=== PATIENT | male | born 1985 | race Caucasian/White ===

== ENCOUNTER 2016-10-14 12:40 | Outpatient (RCR) | payer OTHER ==
--- OUTSIDE RECORDS SUMMARY | 2016-08-19 12:08 | XMS REPORT | Continuity of Care Document ---
Author Author [facility] Organization [facility] Address Unknown Phone Unavailable Care Team Providers Care Video Producer Name Role Phone ShivamHailey mustafa PCP [phone] Source Comments Some departments are not documenting in the electronic medical record. If you do not see the information that you expected, contact Release of Information in the Health Information Management department at [phone] for further assistance in locating additional records.[facility] Active Allergies and Adverse Reactions No Known Allergies Current Medications Prescription Sig. Disp. Refills Start End Date Status Date Ferrous Sulfate (IRON) Take by mouth. Active 325 mg (65 mg iron) CpER cholecalciferol (Vitamin Take 1,000 Units by mouth Active D3) (VITAMIN D-3) 1,000 daily. units tablet fish oil /omega-3 fatty Take 2 Caps by mouth Active acids (SEA-OMEGA) daily. 340/1000 mg capsule ascorbic acid (VITAMIN-C) Take 500 mg by mouth Active 500 mg tablet daily. LACTOBACILLUS ACIDOPHILUS Take 1 Cap by mouth Active (PROBIOTIC PO) daily. PV W-O DESI/FERROUS Take by mouth daily. Active FUMARATE/FA (M-VIT PO) other medication 1 Dose. Patient takes two Active TrueCal-Mag tablets cyanocobalamin (VITAMIN INJECT 1 ML 1 mL 13 03/27/20 Active B-12, RUBRAMIN) 1,000 INTRAMUSCULARLY EVERY 14 16 mcg/mL injection DAYS inFLIXimab (REMICADE) 100 Administer 5 mg/kg Active mg/10 mL injection through vein once. Indications: CROHN'S DISEASE cholecalciferol (vitamin Take 1 Tab by mouth every 8 Tab 0 07/08/20 Active D3) 50,000 unit tab 7 days. X 8 weeks 16 Indications: VITAMIN D DEFICIENCY (HIGH DOSE THERAPY) Active Problems Problem Noted Date Crohn disease (HCC) 02/28/2013 Crohn's disease (HCC) 01/19/2013 Most Recent Encounters Date Type Specialty Providers Description 07/08/2016 Telephone Gastroenterology Primo Aguayo MD Results 07/01/2016 Hospital Primo Aguayo MD Encounter 07/01/2016 Office Visit Gastroenterology Primo Aguayo MD Crohn's disease with complication, unspecified gastrointestinal tract location (HCC) (Primary Dx); Medication monitoring encounter Social History Tobacco Use Types Packs/Day Years Used Date Former Smoker Cigarettes 0.25 1 Quit: 11/15/1999 Alcohol Use Drinks/Week oz/Week Comments Yes 0-1 Standard 0.0 - 0.6 drinks or equivalent Last Filed Vital Signs Vital Sign Reading Time Taken Blood Pressure 126/82 07/01/2016 8:55 AM CDT Pulse 71 07/01/2016 8:55 AM CDT Temperature 36.6 C (97.9 F) 07/01/2016 8:55 AM CDT Respiratory Rate 16 07/01/2016 8:55 AM CDT Height 1.702 m (5' 7") 07/01/2016 8:55 AM CDT Weight 73.347 kg (161 lb 11.2 07/01/2016 8:55 AM CDT oz) Body Mass Index 25.32 07/01/2016 8:55 AM CDT Oxygen Saturation 99% 04/10/2014 5:00 PM CDT Plan of Care Date Type Specialty Providers Description 10/29/2016 Appointment Gastroenterology Primo Aguayo MD [address] [facility] [address] [place] [address] [phone] (Fax) Health Maintenance Due Date Last Done Comments Physical (Comprehensive) 01/22/1992 Exam Pertussis Vaccine 01/22/1996 Tetanus Vaccine 2002 Influenza Vaccine 07/16/2016 Results from Last 3 Months MISC REFERENCE TEST (07/01/2016 9:46 AM) Component Value Range Test PROMETHEUS Anser IFX Reference Lab [facility] Results Ref Lab SEE PHYSICAL SCIENCE TEACHER FOR REPORT Specimen Mail SERUM C REACTIVE PROTEIN (CRP) (07/01/2016 9:46 AM) Component Value Range C-Reactive Protein 0.09 <1.0 MG/DL Specimen Blood SED RATE (07/01/2016 9:46 AM) Component Value Range Sed Rate -ESR 4 0-15 MM/HR Specimen Blood 25-OH VITAMIN D (D2 + D3) (07/01/2016 9:46 AM) Component Value Range Vitamin D(25-OH)Total 26.0 (L) 30-80 NG/ML Specimen Blood TSH WITH FREE T4 REFLEX (07/01/2016 9:46 AM) Component Value Range TSH 1.535 0.35-5.00 MCU/ML Specimen Blood COMPREHENSIVE METABOLIC PANEL (07/01/2016 9:46 AM) Component Value Range Sodium 138 137-147 MMOL/L Potassium 4.4 3.5-5.1 MMOL/L Chloride 104 98-110 MMOL/L Glucose 83 70-100 MG/DL Blood Urea Nitrogen 10 7-25 MG/DL Creatinine 1.11 0.4-1.24 MG/DL Calcium 9.8 8.5-10.6 MG/DL Total Protein 8.1 (H) 6.0-8.0 G/DL Total Bilirubin 0.3 0.3-1.2 MG/DL Albumin 4.5 3.5-5.0 G/DL Alk Phosphatase 74 25-110 U/L AST (SGOT) 24 7-40 U/L CO2 26 21-30 MMOL/L ALT (SGPT) 22 7-56 U/L Anion Gap 8 3-12 eGFR Non >60Comment: >60 mL/min The eGFR is not validated for use in drug dosing adjustments. Continue to use estimated creatinine clearance per dosing reference text. Please contact the Clinical Pharmacist for questions. eGFR >60Comment: >60 mL/min The eGFR is not validated for use in drug dosing adjustments. Continue to use estimated creatinine clearance per dosing reference text. Please contact the Clinical Pharmacist for questions. Specimen Blood CBC AND DIFF (07/01/2016 9:46 AM) Component Value Range White Blood Cells 5.5 4.5-11.0 K/UL RBC 5.20 4.4-5.5 M/UL Hemoglobin 14.6 13.5-16.5 GM/DL Hematocrit 44.3 40-50 % MCV 85.3 80-100 FL MCH 28.1 26-34 PG MCHC 33.0 32.0-36.0 G/DL RDW 13.3 11-15 % Platelet Count 189 150-400 K/UL MPV 9.4 7-11 FL Neutrophils 52 41-77 % Lymphocytes 38 24-44 % Monocytes 9 4-12 % Eosinophils 1 0-5 % Basophils 0 0-2 % Absolute Neutrophil Count 2.80 1.8-7.0 K/UL Absolute Lymph Count 2.10 1.0-4.8 K/UL Absolute Monocyte Count 0.50 0-0.80 K/UL Absolute Eosinophil Count 0.10 0-0.45 K/UL Absolute Basophil Count 0.00 0-0.20 K/UL Specimen Blood
[2016-08-19] MEDS: diphenhydrAMINE 50 MG/ML INJ (BENADRYL) IV SCH (13:00)
[2016-08-19] MEDS: ACETAMINOPHEN 500 MG TAB (TYLENOL) PO SCH (13:00)
[2016-08-19 14:30] VITALS: BP 101/62
[2016-08-19] MEDS: NORMAL SALINE IV SCH (14:30)
[2016-08-19] MEDS: INFLIXIMAB FOR IV SCH (14:30)
[2016-08-19 17:00] VITALS: BP 101/62
[~2016-10-14] VITALS: Ht 170.2 cm; Wt 73.9 kg
[~2016-10-14 12:40] MED LIST: ACETAMINOPHEN 500 MG TAB (TYLENOL) ONE; ACETAMINOPHEN 500 MG TAB (TYLENOL) PO PRN; BUDESONIDE PO; CPR500T PO; EPINEPHrine INJECTION 1 MG/ML AMP SC PRN; FLU TRIvalent (5 YOA+) 2016-17 (AFLURIA) 0.5 ML IM ONE; HYDR-3583 PO; METR500T PO; ONDN4T PO; PRD20T PO; VIT B12 INJECTION IM; diphenhydrAMINE 50 MG/ML INJ (BENADRYL) IV PRN; diphenhydrAMINE 50 MG/ML INJ (BENADRYL) ONE
[2016-10-14] MEDS: ACETAMINOPHEN 500 MG TAB (TYLENOL) PO SCH (12:50)
[2016-10-14] MEDS: diphenhydrAMINE 50 MG/ML INJ (BENADRYL) IV SCH (12:55)
[2016-10-14 13:04] VITALS: BP 117/72
[2016-10-14 13:04] LABS: BASOPHILS % (AUTO) 0 % (0-10); EOSINOPHILS % (AUTO) 1 % (0-10); LYMPHOCYTES % (AUTO) 34 % (12-44); MEAN CORPUSCULAR HEMOGLOBIN 29 PG (25-34); MEAN CORPUSCULAR HGB CONC 34 G/DL (32-36); MEAN CORPUSCULAR VOLUME 84 FL (80-99); MEAN PLATELET VOLUME 10.4 FL (7.4-10.4); MONOCYTES # (AUTO) 0.5 X 10^3 (0.0-1.0); MONOCYTES % (AUTO) 9 % (0-12); NEUTROPHILS # (AUTO) 3.3 X 10^3 (1.8-7.8); NEUTROPHILS % (AUTO) 56 % (42-75); PLATELET COUNT 169 10^3/uL (130-400); RED BLOOD COUNT 5.01 10^6/uL (4.35-5.85); RED CELL DISTRIBUTION WIDTH 13.3 % (10.0-14.5); WHITE BLOOD COUNT 5.9 10^3/uL (4.3-11.0)
[2016-10-14 13:24] LABS: ALANINE AMINOTRANSFERASE 41 U/L (0-55); ALBUMIN 4.7 G/DL (3.2-4.5); ANION GAP 10 MMOL/L (5-14); ASPARTATE AMINO TRANSFERASE 30 U/L (5-34); BILIRUBIN,TOTAL 0.3 MG/DL (0.1-1.0); BLOOD UREA NITROGEN 9 MG/DL (7-18); BUN/CREATININE RATIO 10; CALCIUM 9.3 MG/DL (8.5-10.1); CARBON DIOXIDE 24 MMOL/L (21-32); CHLORIDE 105 MMOL/L (98-107); GFR ESTIMATED > 60; GLUCOSE 84 MG/DL (70-105); SODIUM 139 MMOL/L (135-145); TOTAL PROTEIN 7.7 G/DL (6.4-8.2)
[2016-10-14] MEDS: NORMAL SALINE IV SCH (13:46)
[2016-10-14] MEDS: INFLIXIMAB FOR IV SCH (13:46)
[2016-10-14 16:00] VITALS: BP 117/72
== END 2016-11-17 | disposition home or self-care (01) ==
LOC: SDC 12:40
PROVIDERS: ATTEND Internal Medicine Gastroenterology
DX: K50.90 Crohn's disease, unspecified, without complications (principal)
CPT/HCPCS: 36415; 80053; 85025; 96365; 96366; 96374; 96375

== ENCOUNTER 2016-12-09 12:44 | Outpatient (RCR) | payer OTHER ==
[~2016-12-09] VITALS: Ht 170.2 cm; Wt 73.9 kg
[~2016-12-09 12:44] MED LIST changes: -ACETAMINOPHEN 500 MG TAB (TYLENOL) ONE; -ACETAMINOPHEN 500 MG TAB (TYLENOL) PO PRN; -EPINEPHrine INJECTION 1 MG/ML AMP SC PRN; -FLU TRIvalent (5 YOA+) 2016-17 (AFLURIA) 0.5 ML IM ONE; -diphenhydrAMINE 50 MG/ML INJ (BENADRYL) IV PRN; -diphenhydrAMINE 50 MG/ML INJ (BENADRYL) ONE
--- OUTSIDE RECORDS SUMMARY | 2016-12-09 12:48 | XMS REPORT | Continuity of Care Document ---
Author Author [facility] Organization [facility] Address Unknown Phone Unavailable Care Team Providers Care Lamps Tester And Inspector Name Role Phone ShivamHailey mustafa PCP [phone] Source Comments Some departments are not documenting in the electronic medical record. If you do not see the information that you expected, contact Release of Information in the Health Information Management department at [phone] for further assistance in locating additional records.[facility] Active Allergies and Adverse Reactions No [...] by mouth daily. Active FUMARATE/FA (M-VIT PO) inFLIXimab (REMICADE) 100 Administer 5 mg/kg Active mg/10 mL injection through vein once. Indications: CROHN'S DISEASE cyanocobalamin (VITAMIN INJECT 1 ML 1 mL 12 09/24/20 Active B-12, RUBRAMIN) 1,000 INTRAMUSCULARLY EVERY 14 16 mcg/mL injection DAYS colestipol (COLESTID) 1 Take 1 Tab by mouth three 90 Each 3 10/29/20 Active gram tablet times daily with meals. 16 Cholecalciferol (Vitamin Chew 1 Tab by mouth 90 Tab 0 12/25/19 Active D3) (VITAMIN D-3) 1,000 daily. Start after 17 unit chew Vitamin D 87034 have been completed. Indications: VITAMIN D DEFICIENCY (HIGH DOSE THERAPY) ergocalciferol (VITAMIN Take 1 Cap by mouth every 8 Cap 0 10/29/20 12/24/19 Active D-2) 50,000 unit capsule 7 days for 56 days. For 8 16 17 weeks Indications: VITAMIN D DEFICIENCY (HIGH DOSE THERAPY) diphenoxylate/atropine Take 1 Tab by mouth three 120 Tab 1 11/02/20 Active (LOMOTIL) 2.5/0.025 mg times daily as needed for 16 tablet Diarrhea (take 1 to 2 tablets by mouth three to four times a day as needed). Active Problems Problem Noted Date Crohn disease ([facility]) 02/28/2013 Crohn's disease ([facility]) 01/19/2013 Most Recent Encounters Date Type Specialty Providers Description 11/02/2016 Refill Gastroenterology Primo Aguayo MD 10/29/2016 Office Visit Gastroenterology Primo Aguayo MD Low vitamin D level (Primary Dx); Medication management; Crohn's colitis, unspecified complication ([facility]) 10/16/2016 Orders Only Gastroenterology Primo Aguayo MD Low vitamin D level; Medication monitoring encounter 10/15/2016 Telephone GastroenterPrimo See MD Lab Request 09/24/2016 Telephone Gastroenterology Primo Aguayo MD Follow-up Phone Call 09/23/2016 Refill Gastroenterology Primo Aguayo MD Social History Tobacco Use Types Packs/Day Years Used Date Former Smoker Cigarettes 0.25 1 Quit: 11/15/1999 Alcohol Use Drinks/Week oz/Week Comments Yes 0-1 Standard 0.0 - 0.6 drinks or equivalent Last Filed Vital Signs Vital Sign Reading Time Taken Blood Pressure 129/79 10/29/2016 12:40 PM BELT BUILDER HELPER Pulse 85 10/29/2016 12:40 PM BELT BUILDER HELPER Temperature 36.8 C (98.3 F) 10/29/2016 12:40 PM BELT BUILDER HELPER Respiratory Rate 16 10/29/2016 12:40 PM BELT BUILDER HELPER Height 1.702 m (5' 7") 10/29/2016 12:40 PM BELT BUILDER HELPER Weight 74.844 kg (165 lb) 10/29/2016 12:40 PM BELT BUILDER HELPER Body Mass Index 25.84 10/29/2016 12:40 PM BELT BUILDER HELPER Oxygen Saturation 99% 04/10/2014 5:00 PM CDT Plan of Care Date Type Specialty Providers Description 04/22/2017 Appointment Gastroenterology Primo Aguayo MD [address] [place] [address] [phone] (Fax) Health Maintenance Due Date Last Done Comments Physical (Comprehensive) 01/22/1992 Exam Pertussis Vaccine 01/22/1996 Tetanus Vaccine 2002 Influenza Vaccine 07/16/2016 Results from Last 3 Months CBC AND DIFF (10/14/2016 12:55 PM) Component Value Range White Blood Cells 5.9 4.3-11.0 10E3/uL RBC 5.01 4.35-5.85 10E6/uL Hemoglobin 14.3 13.3-17.7 G/DL Hematocrit 42 40-54 % MCV 84 80-99 FL MCH 29 25-34 PG MCHC 34 32-36 G/DL Platelet Count 169 130-400 10E3/uL MPV 10.4 7.4-10.4 FL RDW 13.3 10.0-14.5 % Neutrophils 56 42-75 % Absolute Neutrophil Count 3.3 1.8-7.8 x10E3 Lymphocytes 34 12-44 % Absolute Lymph Count 2.0 1.0-4.0 x10E3 Monocytes 9 0-12 % Absolute Monocyte Count 0.5 0.0-1.0 x10E3 Eosinophil 1 0-10 % Absolute Eosinophil Count 0.0 0.0-0.3 10E3/uL Basophils 0 0-10 % Absolute Basophil Count 0.0 0.0-0.1 10E3/uL Specimen Blood COMPREHENSIVE METABOLIC PANEL (10/14/2016 12:55 PM) Component Value Range Sodium 139 135-145 MMOL/L Potassium 4.0 3.6-5.0 MMOL/L Chloride 105 98-107 MMOL/L CO2 24 21-32 MMOL/L Blood Urea Nitrogen 9 7-18 MG/DL Creatinine 0.90 0.6-1.3 MG/DL Glucose 84 70-105 MG/DL Calcium 9.3 8.5-10.1 MG/DL Total Protein 7.7 6.4-8.2 G/DL Total Bilirubin 0.3 0.1-1.0 MG/DL Albumin 4.7 (A) 3.2-4.5 G/DL Alk Phosphatase 82 40-136 U/L AST (SGOT) 30 5-34 U/L ALT (SGPT) 41 0-55 U/L eGFR Non >60 >60 mL/min/1.73 M2 Anion Gap 10 5-14 MMOL/L Specimen Blood
[2016-12-09] MEDS ORDERED: ACETAMINOPHEN 500 MG TAB (TYLENOL) ONE (12:49)
[2016-12-09] MEDS ORDERED: diphenhydrAMINE 50 MG/ML INJ (BENADRYL) ONE (12:49)
[2016-12-09] MEDS ORDERED: diphenhydrAMINE 50 MG/ML INJ (BENADRYL) IVP PRN (13:00)
[2016-12-09] MEDS ORDERED: ACETAMINOPHEN 500 MG TAB (TYLENOL) PO PRN (13:00)
[2016-12-09 13:17] LABS: BASOPHILS % (AUTO) 0 % (0-10); EOSINOPHILS % (AUTO) 1 % (0-10); LYMPHOCYTES # (AUTO) 1.5 X 10^3 (1.0-4.0); LYMPHOCYTES % (AUTO) 34 % (12-44); MEAN CORPUSCULAR HEMOGLOBIN 29 PG (25-34); MEAN CORPUSCULAR HGB CONC 34 G/DL (32-36); MEAN CORPUSCULAR VOLUME 84 FL (80-99); MEAN PLATELET VOLUME 10.8 FL (7.4-10.4); MONOCYTES # (AUTO) 0.5 X 10^3 (0.0-1.0); MONOCYTES % (AUTO) 10 % (0-12); NEUTROPHILS # (AUTO) 2.5 X 10^3 (1.8-7.8); NEUTROPHILS % (AUTO) 55 % (42-75); PLATELET COUNT 180 10^3/uL (130-400); RED BLOOD COUNT 5.12 10^6/uL (4.35-5.85); RED CELL DISTRIBUTION WIDTH 13.3 % (10.0-14.5); WHITE BLOOD COUNT 4.5 10^3/uL (4.3-11.0)
[2016-12-09] MEDS ORDERED: NORMAL SALINE IV SCH (13:30)
[2016-12-09] MEDS ORDERED: INFLIXIMAB FOR IV SCH (13:30)
[2016-12-09 13:34] LABS: ALANINE AMINOTRANSFERASE 27 U/L (0-55); ALBUMIN 4.8 G/DL (3.2-4.5); ANION GAP 11 MMOL/L (5-14); ASPARTATE AMINO TRANSFERASE 22 U/L (5-34); BILIRUBIN,TOTAL 0.4 MG/DL (0.1-1.0); BLOOD UREA NITROGEN 8 MG/DL (7-18); BUN/CREATININE RATIO 8; CALCIUM 9.2 MG/DL (8.5-10.1); CARBON DIOXIDE 26 MMOL/L (21-32); CHLORIDE 104 MMOL/L (98-107); CREATININE SERUM 1.02 MG/DL (0.60-1.30); GFR ESTIMATED > 60; GLUCOSE 98 MG/DL (70-105); POTASSIUM 4.1 MMOL/L (3.6-5.0); SODIUM 141 MMOL/L (135-145); TOTAL PROTEIN 7.8 G/DL (6.4-8.2)
[2016-12-09 14:17] VITALS: BP 122/81
[2016-12-09 15:50] VITALS: BP 122/81
== END 2017-03-09 | disposition home or self-care (01) ==
LOC: SDC 12:44
PROVIDERS: ATTEND Internal Medicine Gastroenterology
DX: K50.90 Crohn's disease, unspecified, without complications (principal)
CPT/HCPCS: 36415; 80053; 85025; 96365; 96366; 96374

== ENCOUNTER → 2017-02-03 | Outpatient (CLI) | payer OTHER ==
[~2017-02-03] VITALS: Ht 170.2 cm; Wt 74.8 kg
[~2017-02-03] MED LIST changes: +ACETAMINOPHEN 500 MG TAB (TYLENOL) PO PRN; +INFLIXIMAB FOR IV SCH; +NORMAL SALINE IV SCH; +diphenhydrAMINE 50 MG/ML INJ (BENADRYL) IV PRN
[2017-02-03 13:30] VITALS: BP 141/84
[2017-02-03 13:51] LABS: BASOPHILS % (AUTO) 0 % (0-10); EOSINOPHILS % (AUTO) 1 % (0-10); LYMPHOCYTES # (AUTO) 1.5 X 10^3 (1.0-4.0); LYMPHOCYTES % (AUTO) 33 % (12-44); MEAN CORPUSCULAR HEMOGLOBIN 29 PG (25-34); MEAN CORPUSCULAR HGB CONC 35 G/DL (32-36); MEAN CORPUSCULAR VOLUME 84 FL (80-99); MEAN PLATELET VOLUME 10.5 FL (7.4-10.4); MONOCYTES # (AUTO) 0.5 X 10^3 (0.0-1.0); MONOCYTES % (AUTO) 11 % (0-12); NEUTROPHILS # (AUTO) 2.5 X 10^3 (1.8-7.8); NEUTROPHILS % (AUTO) 55 % (42-75); PLATELET COUNT 165 10^3/uL (130-400); RED BLOOD COUNT 4.81 10^6/uL (4.35-5.85); WHITE BLOOD COUNT 4.6 10^3/uL (4.3-11.0)
[2017-02-03 14:03] LABS: ALANINE AMINOTRANSFERASE 42 U/L (0-55); ALBUMIN 4.3 G/DL (3.2-4.5); ANION GAP 6 MMOL/L (5-14); ASPARTATE AMINO TRANSFERASE 42 U/L (5-34); BILIRUBIN,TOTAL 0.4 MG/DL (0.1-1.0); BLOOD UREA NITROGEN 9 MG/DL (7-18); BUN/CREATININE RATIO 9; CALCIUM 8.9 MG/DL (8.5-10.1); CARBON DIOXIDE 30 MMOL/L (21-32); CHLORIDE 105 MMOL/L (98-107); CREATININE SERUM 1.03 MG/DL (0.60-1.30); GFR ESTIMATED > 60; GLUCOSE 78 MG/DL (70-105); POTASSIUM 3.8 MMOL/L (3.6-5.0); SODIUM 141 MMOL/L (135-145); TOTAL PROTEIN 7.4 G/DL (6.4-8.2)
[2017-02-03 15:58] VITALS: BP 141/84
== END | disposition still patient (30) ==
LOC: SDC 13:18 → EDSTATUS 02-04 12:32
PROVIDERS: ATTEND Internal Medicine Gastroenterology
DX: K50.919 Crohn's disease, unspecified, with unspecified complications (principal)
CPT/HCPCS: 36415; 80053; 85025; 96365; 96366

== ENCOUNTER → 2017-03-31 | Outpatient (CLI) | payer OTHER ==
[~2017-03-31] VITALS: Ht 170.2 cm; Wt 74.8 kg
[~2017-03-31] MED LIST changes: +ACETAMINOPHEN 500 MG TAB (TYLENOL) ONE; +EPINEPHrine INJECTION 1 MG/ML AMP SC SCH; +diphenhydrAMINE 50 MG/ML INJ (BENADRYL) ONE
[2017-03-31 12:10] VITALS: BP 127/84
[2017-03-31 12:42] LABS: BASOPHILS % (AUTO) 0 % (0-10); EOSINOPHILS % (AUTO) 1 % (0-10); LYMPHOCYTES % (AUTO) 42 % (12-44); MEAN CORPUSCULAR HEMOGLOBIN 29 PG (25-34); MEAN CORPUSCULAR HGB CONC 34 G/DL (32-36); MEAN CORPUSCULAR VOLUME 84 FL (80-99); MEAN PLATELET VOLUME 10.3 FL (7.4-10.4); MONOCYTES # (AUTO) 0.5 X 10^3 (0.0-1.0); MONOCYTES % (AUTO) 11 % (0-12); NEUTROPHILS # (AUTO) 2.1 X 10^3 (1.8-7.8); NEUTROPHILS % (AUTO) 46 % (42-75); PLATELET COUNT 157 10^3/uL (130-400); RED BLOOD COUNT 4.87 10^6/uL (4.35-5.85); RED CELL DISTRIBUTION WIDTH 13.2 % (10.0-14.5); WHITE BLOOD COUNT 4.7 10^3/uL (4.3-11.0)
[2017-03-31 13:01] LABS: ALANINE AMINOTRANSFERASE 28 U/L (0-55); ALBUMIN 4.3 G/DL (3.2-4.5); ANION GAP 9 MMOL/L (5-14); ASPARTATE AMINO TRANSFERASE 20 U/L (5-34); BILIRUBIN,TOTAL 0.4 MG/DL (0.1-1.0); BLOOD UREA NITROGEN 7 MG/DL (7-18); BUN/CREATININE RATIO 8; CALCIUM 9.2 MG/DL (8.5-10.1); CARBON DIOXIDE 26 MMOL/L (21-32); CHLORIDE 106 MMOL/L (98-107); CREATININE SERUM 0.93 MG/DL (0.60-1.30); GFR ESTIMATED > 60; GLUCOSE 80 MG/DL (70-105); POTASSIUM 3.9 MMOL/L (3.6-5.0); SODIUM 141 MMOL/L (135-145); TOTAL PROTEIN 7.2 G/DL (6.4-8.2)
== END ==
LOC: SDC 02-03 13:15
PROVIDERS: ATTEND Internal Medicine Gastroenterology
DX: K50.919 Crohn's disease, unspecified, with unspecified complications (principal)
CPT/HCPCS: 36415; 80053; 85025; 96365; 96366

== ENCOUNTER → 2017-05-27 | Outpatient (CLI) | payer OTHER ==
[~2017-05-27] VITALS: Ht 170.2 cm; Wt 74.8 kg
[~2017-05-27] MED LIST changes: +EPINEPHrine INJECTION 1 MG/ML AMP SC PRN; -EPINEPHrine INJECTION 1 MG/ML AMP SC SCH; -INFLIXIMAB FOR IV SCH; +INFLIXIMAB IV SCH; -NORMAL SALINE IV SCH; +NS IV SCH
[2017-05-27 14:28] LABS: BASOPHILS % (AUTO) 0 % (0-10); EOSINOPHILS # (AUTO) 0.1 10^3/uL (0.0-0.3); EOSINOPHILS % (AUTO) 1 % (0-10); LYMPHOCYTES # (AUTO) 1.3 X 10^3 (1.0-4.0); LYMPHOCYTES % (AUTO) 36 % (12-44); MEAN CORPUSCULAR HEMOGLOBIN 29 PG (25-34); MEAN CORPUSCULAR HGB CONC 34 G/DL (32-36); MEAN CORPUSCULAR VOLUME 84 FL (80-99); MEAN PLATELET VOLUME 10.7 FL (7.4-10.4); MONOCYTES # (AUTO) 0.5 X 10^3 (0.0-1.0); MONOCYTES % (AUTO) 13 % (0-12); NEUTROPHILS # (AUTO) 1.9 X 10^3 (1.8-7.8); NEUTROPHILS % (AUTO) 50 % (42-75); PLATELET COUNT 164 10^3/uL (130-400); RED BLOOD COUNT 4.62 10^6/uL (4.35-5.85); RED CELL DISTRIBUTION WIDTH 13.1 % (10.0-14.5); WHITE BLOOD COUNT 3.7 10^3/uL (4.3-11.0)
[2017-05-27 14:44] LABS: ALANINE AMINOTRANSFERASE 32 U/L (0-55); ALBUMIN 4.2 GM/DL (3.2-4.5); ANION GAP 8 MMOL/L (5-14); ASPARTATE AMINO TRANSFERASE 27 U/L (5-34); BILIRUBIN,TOTAL 0.6 MG/DL (0.1-1.0); BLOOD UREA NITROGEN 7 MG/DL (7-18); BUN/CREATININE RATIO 7; CARBON DIOXIDE 28 MMOL/L (21-32); CHLORIDE 104 MMOL/L (98-107); CREATININE SERUM 0.97 MG/DL (0.60-1.30); GFR ESTIMATED > 60; GLUCOSE 80 MG/DL (70-105); POTASSIUM 3.9 MMOL/L (3.6-5.0); SODIUM 140 MMOL/L (135-145); TOTAL PROTEIN 7.5 GM/DL (6.4-8.2)
[2017-05-27 16:35] VITALS: BP 121/72
== END ==
LOC: SDC 13:51
PROVIDERS: ATTEND Internal Medicine Gastroenterology
DX: K50.919 Crohn's disease, unspecified, with unspecified complications (principal)
CPT/HCPCS: 36415; 80053; 85025; 96365; 96366; 96374

== ENCOUNTER → 2017-07-22 | Outpatient (CLI) | payer OTHER ==
[~2017-07-22] VITALS: Ht 170.2 cm; Wt 74.8 kg
[~2017-07-22] MED LIST changes: -ACETAMINOPHEN 500 MG TAB (TYLENOL) PO PRN; +ACETAMINOPHEN 500 MG TAB (TYLENOL) PO SCH; -EPINEPHrine INJECTION 1 MG/ML AMP SC PRN; +diphenhydrAMINE 50 MG/ML INJ (BENADRYL) IV ONE; -diphenhydrAMINE 50 MG/ML INJ (BENADRYL) IV PRN
[2017-07-22 13:13] LABS: BASOPHILS % (AUTO) 0 % (0-10); EOSINOPHILS % (AUTO) 1 % (0-10); LYMPHOCYTES # (AUTO) 1.9 X 10^3 (1.0-4.0); LYMPHOCYTES % (AUTO) 37 % (12-44); MEAN CORPUSCULAR HEMOGLOBIN 29 PG (25-34); MEAN CORPUSCULAR HGB CONC 34 G/DL (32-36); MEAN CORPUSCULAR VOLUME 85 FL (80-99); MEAN PLATELET VOLUME 10.4 FL (7.4-10.4); MONOCYTES # (AUTO) 0.5 X 10^3 (0.0-1.0); MONOCYTES % (AUTO) 10 % (0-12); NEUTROPHILS # (AUTO) 2.6 X 10^3 (1.8-7.8); NEUTROPHILS % (AUTO) 52 % (42-75); PLATELET COUNT 174 10^3/uL (130-400); RED BLOOD COUNT 4.96 10^6/uL (4.35-5.85); WHITE BLOOD COUNT 5.1 10^3/uL (4.3-11.0)
[2017-07-22 13:36] LABS: ALANINE AMINOTRANSFERASE 45 U/L (0-55); ALBUMIN 4.4 GM/DL (3.2-4.5); ANION GAP 8 MMOL/L (5-14); ASPARTATE AMINO TRANSFERASE 26 U/L (5-34); BILIRUBIN,TOTAL 0.5 MG/DL (0.1-1.0); BLOOD UREA NITROGEN 9 MG/DL (7-18); BUN/CREATININE RATIO 9; CALCIUM 9.4 MG/DL (8.5-10.1); CARBON DIOXIDE 27 MMOL/L (21-32); CHLORIDE 105 MMOL/L (98-107); CREATININE SERUM 0.96 MG/DL (0.60-1.30); GFR ESTIMATED > 60; GLUCOSE 100 MG/DL (70-105); POTASSIUM 3.9 MMOL/L (3.6-5.0); SODIUM 140 MMOL/L (135-145); TOTAL PROTEIN 7.7 GM/DL (6.4-8.2)
[2017-07-22 13:51] VITALS: BP 141/86
[2017-07-22 15:28] VITALS: BP 141/86
== END ==
LOC: SDC 12:33
PROVIDERS: ATTEND Internal Medicine Gastroenterology
DX: K50.919 Crohn's disease, unspecified, with unspecified complications (principal)
CPT/HCPCS: 36415; 80053; 85025; 96365; 96366

== ENCOUNTER → 2017-09-16 | Outpatient (CLI) | payer OTHER ==
[~2017-09-16] VITALS: Ht 170.2 cm; Wt 74.8 kg
[~2017-09-16] MED LIST changes: -ACETAMINOPHEN 500 MG TAB (TYLENOL) ONE; +ACETAMINOPHEN 500 MG TAB (TYLENOL) PO PRN; +EPINEPHrine INJECTION 1 MG/ML AMP SC PRN; -diphenhydrAMINE 50 MG/ML INJ (BENADRYL) IV ONE; +diphenhydrAMINE 50 MG/ML INJ (BENADRYL) IV PRN; +diphenhydrAMINE 50 MG/ML INJ (BENADRYL) IV SCH; -diphenhydrAMINE 50 MG/ML INJ (BENADRYL) ONE
[2017-09-16 13:11] VITALS: BP 128/80
[2017-09-16 13:13] VITALS: BP 128/80
[2017-09-16 13:55] LABS: BASOPHILS % (AUTO) 0 % (0-10); EOSINOPHILS # (AUTO) 0.1 10^3/uL (0.0-0.3); EOSINOPHILS % (AUTO) 1 % (0-10); LYMPHOCYTES # (AUTO) 1.9 X 10^3 (1.0-4.0); LYMPHOCYTES % (AUTO) 38 % (12-44); MEAN CORPUSCULAR HEMOGLOBIN 29 PG (25-34); MEAN CORPUSCULAR HGB CONC 34 G/DL (32-36); MEAN CORPUSCULAR VOLUME 85 FL (80-99); MEAN PLATELET VOLUME 10.3 FL (7.4-10.4); MONOCYTES # (AUTO) 0.5 X 10^3 (0.0-1.0); MONOCYTES % (AUTO) 10 % (0-12); NEUTROPHILS # (AUTO) 2.5 X 10^3 (1.8-7.8); NEUTROPHILS % (AUTO) 50 % (42-75); PLATELET COUNT 175 10^3/uL (130-400); RED BLOOD COUNT 4.84 10^6/uL (4.35-5.85); RED CELL DISTRIBUTION WIDTH 13.4 % (10.0-14.5); WHITE BLOOD COUNT 4.9 10^3/uL (4.3-11.0)
[2017-09-16 14:14] LABS: ALANINE AMINOTRANSFERASE 35 U/L (0-55); ALBUMIN 4.3 GM/DL (3.2-4.5); ANION GAP 8 MMOL/L (5-14); ASPARTATE AMINO TRANSFERASE 26 U/L (5-34); BILIRUBIN,TOTAL 0.4 MG/DL (0.1-1.0); BLOOD UREA NITROGEN 8 MG/DL (7-18); BUN/CREATININE RATIO 8; CALCIUM 9.4 MG/DL (8.5-10.1); CARBON DIOXIDE 27 MMOL/L (21-32); CHLORIDE 104 MMOL/L (98-107); CREATININE SERUM 0.97 MG/DL (0.60-1.30); GFR ESTIMATED > 60; GLUCOSE 91 MG/DL (70-105); POTASSIUM 4.1 MMOL/L (3.6-5.0); SODIUM 139 MMOL/L (135-145); TOTAL PROTEIN 7.6 GM/DL (6.4-8.2)
[2017-09-16 16:27] VITALS: BP 128/80
== END ==
LOC: SDC 12:33
PROVIDERS: ATTEND Internal Medicine Gastroenterology
DX: K50.919 Crohn's disease, unspecified, with unspecified complications (principal)
CPT/HCPCS: 36415; 80053; 85025; 96365; 96366; 96375

== ENCOUNTER 2017-11-11 13:12 | Outpatient (RCR) | payer OTHER ==
[~2017-11-11 13:12] MED LIST changes: -ACETAMINOPHEN 500 MG TAB (TYLENOL) PO PRN; -ACETAMINOPHEN 500 MG TAB (TYLENOL) PO SCH; -EPINEPHrine INJECTION 1 MG/ML AMP SC PRN; -INFLIXIMAB IV SCH; -NS IV SCH; -diphenhydrAMINE 50 MG/ML INJ (BENADRYL) IV PRN; -diphenhydrAMINE 50 MG/ML INJ (BENADRYL) IV SCH
[2017-11-11] MEDS ORDERED: ACETAMINOPHEN 500 MG TAB (TYLENOL) ONE ×2 (13:29→13:45)
[2017-11-11] MEDS ORDERED: diphenhydrAMINE 50 MG/ML INJ (BENADRYL) ONE ×2 (13:29→13:45)
== END 2018-02-09 | disposition home or self-care (01) ==
LOC: SDC 13:12
PROVIDERS: ATTEND Internal Medicine Gastroenterology
DX: K50.90 Crohn's disease, unspecified, without complications (principal)
CPT/HCPCS: 96365; 96366; 96375

== ENCOUNTER → 2018-01-05 | Outpatient (CLI) | payer OTHER ==
[~2018-01-05] VITALS: Ht 170.2 cm; Wt 73.0 kg
[~2018-01-05] MED LIST changes: +EPINEPHrine INJECTION 1 MG/ML AMP SC PRN; +INFLIXIMAB IV SCH; +SODIUM CHLORIDE IV SCH; +diphenhydrAMINE 50 MG/ML INJ (BENADRYL) IV PRN
[2018-01-05 12:21] VITALS: BP 128/82
[2018-01-05] MEDS: ACETAMINOPHEN 500 MG TAB (TYLENOL) PO PRN (12:50)
[2018-01-05 14:42] LABS: BASOPHILS % (AUTO) 0 % (0-10); EOSINOPHILS % (AUTO) 1 % (0-10); HEMATOCRIT 40 % (40-54); HEMOGLOBIN 13.7 G/DL (13.3-17.7); LYMPHOCYTES # (AUTO) 1.5 X 10^3 (1.0-4.0); LYMPHOCYTES % (AUTO) 31 % (12-44); MEAN CORPUSCULAR HEMOGLOBIN 29 PG (25-34); MEAN CORPUSCULAR HGB CONC 34 G/DL (32-36); MEAN CORPUSCULAR VOLUME 85 FL (80-99); MEAN PLATELET VOLUME 10.2 FL (7.4-10.4); MONOCYTES # (AUTO) 0.6 X 10^3 (0.0-1.0); MONOCYTES % (AUTO) 12 % (0-12); NEUTROPHILS # (AUTO) 2.7 X 10^3 (1.8-7.8); NEUTROPHILS % (AUTO) 56 % (42-75); PLATELET COUNT 190 10^3/uL (130-400); RED BLOOD COUNT 4.78 10^6/uL (4.35-5.85); RED CELL DISTRIBUTION WIDTH 13.3 % (10.0-14.5); WHITE BLOOD COUNT 4.8 10^3/uL (4.3-11.0)
[2018-01-05 15:10] LABS: ALANINE AMINOTRANSFERASE 33 U/L (0-55); ALBUMIN 4.3 GM/DL (3.2-4.5); ALKALINE PHOSPHATASE 82 U/L (40-136); BILIRUBIN,TOTAL 0.3 MG/DL (0.1-1.0); BUN/CREATININE RATIO 12; CALCIUM 8.9 MG/DL (8.5-10.1); CARBON DIOXIDE 26 MMOL/L (21-32); CHLORIDE 103 MMOL/L (98-107); CREATININE SERUM 0.98 MG/DL (0.60-1.30); GFR ESTIMATED > 60; GLUCOSE 70 MG/DL (70-105); POTASSIUM 3.8 MMOL/L (3.6-5.0); SODIUM 138 MMOL/L (135-145); TOTAL PROTEIN 7.8 GM/DL (6.4-8.2)
== END ==
LOC: SDC 12:18
PROVIDERS: ATTEND Internal Medicine Gastroenterology
DX: K50.919 Crohn's disease, unspecified, with unspecified complications (principal)
CPT/HCPCS: 36415; 80053; 85025; 96365; 96366

== ENCOUNTER 2018-03-03 11:53 | Outpatient (RCR) | payer OTHER ==
[~2018-03-03] VITALS: Ht 170.2 cm; Wt 73.0 kg
[~2018-03-03 11:53] MED LIST changes: -EPINEPHrine INJECTION 1 MG/ML AMP SC PRN; -INFLIXIMAB IV SCH; -SODIUM CHLORIDE IV SCH; -diphenhydrAMINE 50 MG/ML INJ (BENADRYL) IV PRN
[2018-03-03 11:55] VITALS: BP 124/82
[2018-03-03] MEDS ORDERED: ACETAMINOPHEN 500 MG TAB (TYLENOL) ONE (11:58)
[2018-03-03] MEDS ORDERED: diphenhydrAMINE 50 MG/ML INJ (BENADRYL) ONE (12:10)
[2018-03-03] MEDS ORDERED: INFLIXIMAB IV SCH ×4 (12:13→12:17)
[2018-03-03] MEDS ORDERED: SODIUM CHLORIDE IV SCH ×4 (12:13→12:17)
[2018-03-03 12:16] LABS: BASOPHILS % (AUTO) 0 % (0-10); EOSINOPHILS # (AUTO) 0.1 10^3/uL (0.0-0.3); EOSINOPHILS % (AUTO) 1 % (0-10); HEMATOCRIT 42 % (40-54); HEMOGLOBIN 14.3 G/DL (13.3-17.7); LYMPHOCYTES # (AUTO) 1.7 X 10^3 (1.0-4.0); LYMPHOCYTES % (AUTO) 29 % (12-44); MEAN CORPUSCULAR HEMOGLOBIN 28 PG (25-34); MEAN CORPUSCULAR HGB CONC 34 G/DL (32-36); MEAN CORPUSCULAR VOLUME 83 FL (80-99); MEAN PLATELET VOLUME 10.1 FL (7.4-10.4); MONOCYTES # (AUTO) 0.5 X 10^3 (0.0-1.0); MONOCYTES % (AUTO) 9 % (0-12); NEUTROPHILS # (AUTO) 3.5 X 10^3 (1.8-7.8); NEUTROPHILS % (AUTO) 61 % (42-75); PLATELET COUNT 187 10^3/uL (130-400); RED BLOOD COUNT 5.04 10^6/uL (4.35-5.85); RED CELL DISTRIBUTION WIDTH 13.7 % (10.0-14.5); WHITE BLOOD COUNT 5.7 10^3/uL (4.3-11.0)
[2018-03-03] MEDS ORDERED: EPINEPHrine INJECTION 1 MG/ML AMP SC PRN (12:17)
[2018-03-03] MEDS ORDERED: diphenhydrAMINE 50 MG/ML INJ (BENADRYL) IV PRN (12:17)
[2018-03-03] MEDS ORDERED: ACETAMINOPHEN 500 MG TAB (TYLENOL) PO PRN (12:17)
[2018-03-03 12:38] LABS: ALANINE AMINOTRANSFERASE 38 U/L (0-55); ALBUMIN 4.6 GM/DL (3.2-4.5); ALKALINE PHOSPHATASE 83 U/L (40-136); BILIRUBIN,TOTAL 0.4 MG/DL (0.1-1.0); BUN/CREATININE RATIO 8; CALCIUM 9.4 MG/DL (8.5-10.1); CARBON DIOXIDE 29 MMOL/L (21-32); CHLORIDE 102 MMOL/L (98-107); CREATININE SERUM 1.04 MG/DL (0.60-1.30); GFR ESTIMATED > 60; GLUCOSE 122 MG/DL (70-105); POTASSIUM 4.2 MMOL/L (3.6-5.0); SODIUM 140 MMOL/L (135-145); TOTAL PROTEIN 8.3 GM/DL (6.4-8.2)
[2018-03-03 14:25] VITALS: BP 122/76
== END 2018-06-01 | disposition home or self-care (01) ==
LOC: SDC 11:53
PROVIDERS: ATTEND Internal Medicine Gastroenterology
DX: K50.90 Crohn's disease, unspecified, without complications (principal)
CPT/HCPCS: 36415; 80053; 85025; 96365; 96366; 96375

== ENCOUNTER → 2018-04-27 | Outpatient (CLI) | payer OTHER ==
[~2018-04-27] VITALS: Ht 170.2 cm; Wt 68.0 kg
[~2018-04-27] MED LIST changes: +ACETAMINOPHEN 500 MG TAB (TYLENOL) ONE; +ACETAMINOPHEN 500 MG TAB (TYLENOL) PO PRN; +EPINEPHrine INJECTION 1 MG/ML AMP SC PRN; +INFLIXIMAB IV SCH; +SODIUM CHLORIDE IV SCH; +diphenhydrAMINE 50 MG/ML INJ (BENADRYL) IV PRN; +diphenhydrAMINE 50 MG/ML INJ (BENADRYL) ONE
[2018-04-27 12:25] VITALS: BP 126/81
[2018-04-27 12:58] LABS: BASOPHILS % (AUTO) 0 % (0-10); EOSINOPHILS % (AUTO) 1 % (0-10); HEMATOCRIT 39 % (40-54); HEMOGLOBIN 13.1 G/DL (13.3-17.7); LYMPHOCYTES # (AUTO) 1.3 X 10^3 (1.0-4.0); LYMPHOCYTES % (AUTO) 36 % (12-44); MEAN CORPUSCULAR HEMOGLOBIN 28 PG (25-34); MEAN CORPUSCULAR HGB CONC 33 G/DL (32-36); MEAN CORPUSCULAR VOLUME 84 FL (80-99); MEAN PLATELET VOLUME 10.8 FL (7.4-10.4); MONOCYTES # (AUTO) 0.3 X 10^3 (0.0-1.0); MONOCYTES % (AUTO) 10 % (0-12); NEUTROPHILS # (AUTO) 1.9 X 10^3 (1.8-7.8); NEUTROPHILS % (AUTO) 54 % (42-75); PLATELET COUNT 161 10^3/uL (130-400); RED BLOOD COUNT 4.66 10^6/uL (4.35-5.85); RED CELL DISTRIBUTION WIDTH 14.7 % (10.0-14.5); WHITE BLOOD COUNT 3.5 10^3/uL (4.3-11.0)
[2018-04-27 13:11] LABS: ALANINE AMINOTRANSFERASE 17 U/L (0-55); ALBUMIN 4.3 GM/DL (3.2-4.5); ALKALINE PHOSPHATASE 64 U/L (40-136); BILIRUBIN,TOTAL 0.4 MG/DL (0.1-1.0); BUN/CREATININE RATIO 11; CALCIUM 9.2 MG/DL (8.5-10.1); CARBON DIOXIDE 25 MMOL/L (21-32); CHLORIDE 105 MMOL/L (98-107); GFR ESTIMATED > 60; GLUCOSE 93 MG/DL (70-105); POTASSIUM 4.3 MMOL/L (3.6-5.0); SODIUM 139 MMOL/L (135-145); TOTAL PROTEIN 7.4 GM/DL (6.4-8.2)
== END ==
LOC: SDC 12:21
PROVIDERS: ATTEND Internal Medicine Gastroenterology
DX: K50.919 Crohn's disease, unspecified, with unspecified complications (principal)
CPT/HCPCS: 36415; 80053; 85025; 96365; 96366

== ENCOUNTER 2018-04-28 15:43 | Outpatient (RCR) | payer OTHER ==
[~2018-04-28 15:43] MED LIST changes: -ACETAMINOPHEN 500 MG TAB (TYLENOL) ONE; -ACETAMINOPHEN 500 MG TAB (TYLENOL) PO PRN; -EPINEPHrine INJECTION 1 MG/ML AMP SC PRN; -INFLIXIMAB IV SCH; -SODIUM CHLORIDE IV SCH; -diphenhydrAMINE 50 MG/ML INJ (BENADRYL) IV PRN; -diphenhydrAMINE 50 MG/ML INJ (BENADRYL) ONE
[2018-04-28 17:05] LABS: SEMEN VOLUME 1.2 ML (1.5-5.0)
== END 2018-07-27 | disposition home or self-care (01) ==
LOC: LAB 15:43
PROVIDERS: ATTEND Obstetrics & Gynecology
DX: N46.11 Organic oligospermia (principal)
CPT/HCPCS: 89320

== ENCOUNTER → 2018-06-21 | Outpatient (CLI) | payer OTHER ==
[~2018-06-21] VITALS: Ht 170.2 cm; Wt 67.6 kg
[~2018-06-21] MED LIST changes: +ACETAMINOPHEN 500 MG TAB (TYLENOL) PO PRN; +CATHETER FLUSH 10 ML SYR IV PRN; +EPINEPHrine INJECTION 1 MG/ML AMP SC PRN; +diphenhydrAMINE 50 MG/ML INJ (BENADRYL) IV PRN; +inFLIXimab 300 MG/NS 250 ML (EXCEL) IV SCH
[2018-06-21 12:31] VITALS: BP 114/76
[2018-06-21 12:49] LABS: BASOPHILS % (AUTO) 0 % (0-10); EOSINOPHILS % (AUTO) 1 % (0-10); HEMATOCRIT 40 % (40-54); HEMOGLOBIN 13.5 G/DL (13.3-17.7); LYMPHOCYTES # (AUTO) 1.9 X 10^3 (1.0-4.0); LYMPHOCYTES % (AUTO) 35 % (12-44); MEAN CORPUSCULAR HEMOGLOBIN 28 PG (25-34); MEAN CORPUSCULAR HGB CONC 34 G/DL (32-36); MEAN CORPUSCULAR VOLUME 82 FL (80-99); MEAN PLATELET VOLUME 10.2 FL (7.4-10.4); MONOCYTES # (AUTO) 0.4 X 10^3 (0.0-1.0); MONOCYTES % (AUTO) 8 % (0-12); NEUTROPHILS # (AUTO) 2.9 X 10^3 (1.8-7.8); NEUTROPHILS % (AUTO) 56 % (42-75); PLATELET COUNT 228 10^3/uL (130-400); RED BLOOD COUNT 4.83 10^6/uL (4.35-5.85); RED CELL DISTRIBUTION WIDTH 14.1 % (10.0-14.5); WHITE BLOOD COUNT 5.3 10^3/uL (4.3-11.0)
[2018-06-21 13:06] LABS: ALANINE AMINOTRANSFERASE 17 U/L (0-55); ALBUMIN 4.5 GM/DL (3.2-4.5); ALKALINE PHOSPHATASE 80 U/L (40-136); BILIRUBIN,TOTAL 0.5 MG/DL (0.1-1.0); BUN/CREATININE RATIO 11; CALCIUM 9.5 MG/DL (8.5-10.1); CARBON DIOXIDE 28 MMOL/L (21-32); CHLORIDE 105 MMOL/L (98-107); CREATININE SERUM 0.99 MG/DL (0.60-1.30); GFR ESTIMATED > 60; GLUCOSE 96 MG/DL (70-105); POTASSIUM 4.2 MMOL/L (3.6-5.0); SODIUM 140 MMOL/L (135-145)
[2018-06-21 14:55] VITALS: BP 114/76
== END ==
LOC: EDSTATUS 06-02 12:16 → SDC 12:16
PROVIDERS: ATTEND Internal Medicine Gastroenterology
DX: K50.90 Crohn's disease, unspecified, without complications (principal)
CPT/HCPCS: 36415; 80053; 85025; 96365; 96366; 96374; 96375

== ENCOUNTER → 2018-08-16 | Outpatient (CLI) | payer OTHER ==
[~2018-08-16] VITALS: Ht 170.2 cm; Wt 67.6 kg
[~2018-08-16] MED LIST changes: +ACETAMINOPHEN 500 MG TAB (TYLENOL) ONE; +diphenhydrAMINE 50 MG/ML INJ (BENADRYL) ONE
[2018-08-16 12:55] VITALS: BP 124/72
[2018-08-16 13:49] LABS: BASOPHILS % (AUTO) 0 % (0-10); EOSINOPHILS # (AUTO) 0.1 10^3/uL (0.0-0.3); EOSINOPHILS % (AUTO) 1 % (0-10); HEMATOCRIT 36 % (40-54); HEMOGLOBIN 12.6 G/DL (13.3-17.7); LYMPHOCYTES # (AUTO) 1.7 X 10^3 (1.0-4.0); LYMPHOCYTES % (AUTO) 35 % (12-44); MEAN CORPUSCULAR HEMOGLOBIN 29 PG (25-34); MEAN CORPUSCULAR HGB CONC 35 G/DL (32-36); MEAN CORPUSCULAR VOLUME 83 FL (80-99); MEAN PLATELET VOLUME 10.4 FL (7.4-10.4); MONOCYTES # (AUTO) 0.6 X 10^3 (0.0-1.0); MONOCYTES % (AUTO) 11 % (0-12); NEUTROPHILS # (AUTO) 2.6 X 10^3 (1.8-7.8); NEUTROPHILS % (AUTO) 52 % (42-75); PLATELET COUNT 160 10^3/uL (130-400); RED BLOOD COUNT 4.35 10^6/uL (4.35-5.85); RED CELL DISTRIBUTION WIDTH 14.4 % (10.0-14.5); WHITE BLOOD COUNT 4.9 10^3/uL (4.3-11.0)
[2018-08-16 14:11] LABS: ALANINE AMINOTRANSFERASE 16 U/L (0-55); ALBUMIN 4.1 GM/DL (3.2-4.5); ALKALINE PHOSPHATASE 64 U/L (40-136); BILIRUBIN,TOTAL 0.3 MG/DL (0.1-1.0); BUN/CREATININE RATIO 12; CALCIUM 8.8 MG/DL (8.5-10.1); CARBON DIOXIDE 26 MMOL/L (21-32); CHLORIDE 106 MMOL/L (98-107); CREATININE SERUM 0.95 MG/DL (0.60-1.30); GFR ESTIMATED > 60; GLUCOSE 84 MG/DL (70-105); POTASSIUM 3.9 MMOL/L (3.6-5.0); SODIUM 140 MMOL/L (135-145); TOTAL PROTEIN 7.4 GM/DL (6.4-8.2)
== END ==
LOC: SDC 12:52
PROVIDERS: ATTEND Internal Medicine Gastroenterology
DX: K50.919 Crohn's disease, unspecified, with unspecified complications (principal)
CPT/HCPCS: 36415; 80053; 85025; 96365; 96366; 96374

== ENCOUNTER 2018-10-12 13:13 | Outpatient (CLI) | payer OTHER ==
[~2018-10-12] VITALS: Ht 170.2 cm; Wt 67.6 kg
[~2018-10-12 13:13] MED LIST changes: -ACETAMINOPHEN 500 MG TAB (TYLENOL) ONE; -ACETAMINOPHEN 500 MG TAB (TYLENOL) PO PRN; -CATHETER FLUSH 10 ML SYR IV PRN; -EPINEPHrine INJECTION 1 MG/ML AMP SC PRN; -diphenhydrAMINE 50 MG/ML INJ (BENADRYL) IV PRN; -diphenhydrAMINE 50 MG/ML INJ (BENADRYL) ONE; -inFLIXimab 300 MG/NS 250 ML (EXCEL) IV SCH
[2018-10-12] MEDS ORDERED: EPINEPHrine INJECTION 1 MG/ML AMP SC PRN (13:38)
[2018-10-12] MEDS ORDERED: inFLIXimab 300 MG/NS 250 ML (EXCEL) IV SCH ×2 (13:38)
[2018-10-12] MEDS ORDERED: CATHETER FLUSH 10 ML SYR IV PRN (13:38)
[2018-10-12] MEDS ORDERED: ACETAMINOPHEN 500 MG TAB (TYLENOL) PO PRN (13:38)
[2018-10-12] MEDS ORDERED: diphenhydrAMINE 50 MG/ML INJ (BENADRYL) IV PRN (13:38)
[2018-10-12 13:52] LABS: HEMOGLOBIN 13.2 G/DL (13.3-17.7); MEAN PLATELET VOLUME 10.3 FL (7.4-10.4); RED BLOOD COUNT 4.79 10^6/uL (4.35-5.85); RED CELL DISTRIBUTION WIDTH 13.9 % (10.0-14.5); WHITE BLOOD COUNT 5.2 10^3/uL (4.3-11.0)
[2018-10-12 14:05] VITALS: BP_SYST 117; BP_SYST 126; BP_DIAS 63; BP_DIAS 74
[2018-10-12 14:12] LABS: ALANINE AMINOTRANSFERASE 17 U/L (0-55); ALBUMIN 4.4 GM/DL (3.2-4.5); ALKALINE PHOSPHATASE 78 U/L (40-136); BILIRUBIN,TOTAL 0.3 MG/DL (0.1-1.0); BUN/CREATININE RATIO 9; CALCIUM 9.3 MG/DL (8.5-10.1); CARBON DIOXIDE 24 MMOL/L (21-32); CHLORIDE 104 MMOL/L (98-107); GFR ESTIMATED > 60; GLUCOSE 133 MG/DL (70-105); POTASSIUM 3.6 MMOL/L (3.6-5.0); SODIUM 139 MMOL/L (135-145)
[2018-10-12 16:15] VITALS: BP 126/74
== END 2018-10-12 16:15 | disposition home or self-care (01) ==
LOC: SDC 13:13
PROVIDERS: ATTEND Internal Medicine Gastroenterology
DX: K50.90 Crohn's disease, unspecified, without complications (principal)
CPT/HCPCS: 36415; 80053; 85027; 96365; 96366; 96374

== ENCOUNTER → 2018-12-06 | Outpatient (CLI) | payer OTHER ==
[~2018-12-06] VITALS: Ht 170.2 cm; Wt 67.6 kg
[~2018-12-06] MED LIST changes: +ACETAMINOPHEN 500 MG TAB (TYLENOL) PO PRN; +EPINEPHrine INJECTION 1 MG/ML AMP SC PRN; +diphenhydrAMINE 50 MG/ML INJ (BENADRYL) IV PRN; +inFLIXimab 300 MG/NS 250 ML (EXCEL) IV SCH
[2018-12-06 12:58] VITALS: BP 111/79
[2018-12-06 13:46] LABS: BASOPHILS % (AUTO) 0 % (0-10); EOSINOPHILS # (AUTO) 0.1 10^3/uL (0.0-0.3); EOSINOPHILS % (AUTO) 1 % (0-10); HEMATOCRIT 41 % (40-54); HEMOGLOBIN 13.9 G/DL (13.3-17.7); LYMPHOCYTES # (AUTO) 1.8 X 10^3 (1.0-4.0); LYMPHOCYTES % (AUTO) 37 % (12-44); MEAN CORPUSCULAR HEMOGLOBIN 28 PG (25-34); MEAN CORPUSCULAR HGB CONC 34 G/DL (32-36); MEAN CORPUSCULAR VOLUME 83 FL (80-99); MEAN PLATELET VOLUME 10.5 FL (7.4-10.4); MONOCYTES # (AUTO) 0.5 X 10^3 (0.0-1.0); MONOCYTES % (AUTO) 10 % (0-12); NEUTROPHILS # (AUTO) 2.7 X 10^3 (1.8-7.8); NEUTROPHILS % (AUTO) 53 % (42-75); PLATELET COUNT 176 10^3/uL (130-400); RED BLOOD COUNT 4.95 10^6/uL (4.35-5.85); RED CELL DISTRIBUTION WIDTH 14.2 % (10.0-14.5)
[2018-12-06 14:13] LABS: ALANINE AMINOTRANSFERASE 9 U/L (0-55); ALBUMIN 4.4 GM/DL (3.2-4.5); ALKALINE PHOSPHATASE 66 U/L (40-136); BILIRUBIN,TOTAL 0.4 MG/DL (0.1-1.0); BUN/CREATININE RATIO 11; CALCIUM 9.1 MG/DL (8.5-10.1); CARBON DIOXIDE 24 MMOL/L (21-32); CHLORIDE 106 MMOL/L (98-107); CREATININE SERUM 1.02 MG/DL (0.60-1.30); GFR ESTIMATED > 60; GLUCOSE 99 MG/DL (70-105); POTASSIUM 3.8 MMOL/L (3.6-5.0); SODIUM 140 MMOL/L (135-145); TOTAL PROTEIN 7.9 GM/DL (6.4-8.2)
== END ==
LOC: SDC 12:47
PROVIDERS: ATTEND Internal Medicine Gastroenterology
DX: K50.919 Crohn's disease, unspecified, with unspecified complications (principal)
CPT/HCPCS: 36415; 80053; 85025; 96365; 96366; 96374

== ENCOUNTER 2019-02-01 13:00 | Outpatient (CLI) | payer OTHER ==
[~2019-02-01] VITALS: Ht 170.2 cm; Wt 67.6 kg
[~2019-02-01 13:00] MED LIST changes: -ACETAMINOPHEN 500 MG TAB (TYLENOL) PO PRN; -EPINEPHrine INJECTION 1 MG/ML AMP SC PRN; -diphenhydrAMINE 50 MG/ML INJ (BENADRYL) IV PRN; -inFLIXimab 300 MG/NS 250 ML (EXCEL) IV SCH
[2019-02-01] MEDS ORDERED: ACETAMINOPHEN 500 MG TAB (TYLENOL) ONE (13:25)
[2019-02-01] MEDS ORDERED: inFLIXimab 300 MG/NS 250 ML (EXCEL) IV SCH ×2 (13:26)
[2019-02-01] MEDS ORDERED: ACETAMINOPHEN 500 MG TAB (TYLENOL) PO PRN (13:26)
[2019-02-01] MEDS ORDERED: diphenhydrAMINE 50 MG/ML INJ (BENADRYL) IV PRN (13:26)
[2019-02-01] MEDS ORDERED: EPINEPHrine INJECTION 1 MG/ML AMP SC PRN (13:26)
[2019-02-01] MEDS ORDERED: inFLIXimab 300 MG/NS 250 ML (EXCEL) IV ONE ×2 (13:30)
[2019-02-01 14:08] LABS: HEMOGLOBIN 13.9 G/DL (13.3-17.7); MEAN PLATELET VOLUME 10.3 FL (7.4-10.4); RED CELL DISTRIBUTION WIDTH 13.9 % (10.0-14.5); WHITE BLOOD COUNT 6.8 10^3/uL (4.3-11.0)
[2019-02-01 14:19] LABS: ALANINE AMINOTRANSFERASE 15 U/L (0-55); ALBUMIN 4.5 GM/DL (3.2-4.5); ALKALINE PHOSPHATASE 75 U/L (40-136); BILIRUBIN,TOTAL 0.3 MG/DL (0.1-1.0); BUN/CREATININE RATIO 9; CALCIUM 9.2 MG/DL (8.5-10.1); CARBON DIOXIDE 23 MMOL/L (21-32); CHLORIDE 105 MMOL/L (98-107); CREATININE SERUM 1.06 MG/DL (0.60-1.30); GFR ESTIMATED > 60; GLUCOSE 72 MG/DL (70-105); POTASSIUM 3.7 MMOL/L (3.6-5.0); SODIUM 139 MMOL/L (135-145); TOTAL PROTEIN 8.3 GM/DL (6.4-8.2)
[2019-02-01 16:00] VITALS: BP 133/78
== END 2019-02-01 16:00 | disposition home or self-care (01) ==
LOC: SDC 13:00
PROVIDERS: ATTEND Internal Medicine Gastroenterology
DX: K50.90 Crohn's disease, unspecified, without complications (principal)
CPT/HCPCS: 36415; 80053; 85027; 96365; 96366; 96374

== ENCOUNTER 2019-03-29 12:37 | Outpatient (CLI) | payer OTHER ==
[~2019-03-29] VITALS: Ht 170.2 cm; Wt 71.8 kg
[2019-03-29 13:03] LABS: BASOPHILS % (AUTO) 1 % (0-10); EOSINOPHILS # (AUTO) 0.1 10^3/uL (0.0-0.3); EOSINOPHILS % (AUTO) 2 % (0-10); HEMATOCRIT 39 % (40-54); HEMOGLOBIN 12.9 G/DL (13.3-17.7); LYMPHOCYTES # (AUTO) 1.4 X 10^3 (1.0-4.0); LYMPHOCYTES % (AUTO) 35 % (12-44); MEAN CORPUSCULAR HEMOGLOBIN 28 PG (25-34); MEAN CORPUSCULAR HGB CONC 34 G/DL (32-36); MEAN CORPUSCULAR VOLUME 84 FL (80-99); MEAN PLATELET VOLUME 10.4 FL (7.4-10.4); MONOCYTES # (AUTO) 0.5 X 10^3 (0.0-1.0); MONOCYTES % (AUTO) 11 % (0-12); NEUTROPHILS # (AUTO) 2.1 X 10^3 (1.8-7.8); NEUTROPHILS % (AUTO) 52 % (42-75); PLATELET COUNT 163 10^3/uL (130-400); RED CELL DISTRIBUTION WIDTH 13.8 % (10.0-14.5); WHITE BLOOD COUNT 4.1 10^3/uL (4.3-11.0)
[2019-03-29] MEDS ORDERED: ACETAMINOPHEN 500 MG TAB (TYLENOL) ONE (13:11)
[2019-03-29] MEDS ORDERED: diphenhydrAMINE 50 MG/ML INJ (BENADRYL) ONE (13:11)
[2019-03-29 13:24] LABS: ALANINE AMINOTRANSFERASE 15 U/L (0-55); ALBUMIN 4.1 GM/DL (3.2-4.5); ALKALINE PHOSPHATASE 76 U/L (40-136); BILIRUBIN,TOTAL 0.4 MG/DL (0.1-1.0); BUN/CREATININE RATIO 10; CALCIUM 9.1 MG/DL (8.5-10.1); CARBON DIOXIDE 24 MMOL/L (21-32); CHLORIDE 104 MMOL/L (98-107); CREATININE SERUM 1.05 MG/DL (0.60-1.30); GFR ESTIMATED > 60; GLUCOSE 80 MG/DL (70-105); POTASSIUM 4.1 MMOL/L (3.6-5.0); SODIUM 140 MMOL/L (135-145); TOTAL PROTEIN 7.4 GM/DL (6.4-8.2)
[2019-03-29] MEDS ORDERED: NORMAL SALINE IV SCH (13:30)
[2019-03-29] MEDS ORDERED: INFLIXIMAB FOR IV SCH (13:30)
[2019-03-29] MEDS ORDERED: ACETAMINOPHEN 500 MG TAB (TYLENOL) PO ONE (13:45)
[2019-03-29] MEDS ORDERED: diphenhydrAMINE 50 MG/ML INJ (BENADRYL) IV ONE (13:45)
[2019-03-29 16:10] VITALS: BP 128/72
== END 2019-03-29 16:10 | disposition home or self-care (01) ==
LOC: SDC 12:37
PROVIDERS: ATTEND Internal Medicine Gastroenterology
DX: K50.90 Crohn's disease, unspecified, without complications (principal); Z79.899 Other long term (current) drug therapy
CPT/HCPCS: 36415; 80053; 85025; 96365; 96366; 96374

== ENCOUNTER → 2019-05-24 | Outpatient (CLI) | payer OTHER ==
[~2019-05-24] VITALS: Ht 170.2 cm; Wt 71.3 kg
[~2019-05-24] MED LIST changes: +ACETAMINOPHEN 500 MG TAB (TYLENOL) ONE; +ACETAMINOPHEN 500 MG TAB (TYLENOL) PO ONE; +INFLIXIMAB FOR IV ONE; +NORMAL SALINE IV ONE; +diphenhydrAMINE 50 MG/ML INJ (BENADRYL) IV ONE; +diphenhydrAMINE 50 MG/ML INJ (BENADRYL) ONE
[2019-05-24 12:27] LABS: BASOPHILS % (AUTO) 0 % (0-10); EOSINOPHILS # (AUTO) 0.1 10^3/uL (0.0-0.3); EOSINOPHILS % (AUTO) 1 % (0-10); HEMATOCRIT 41 % (40-54); HEMOGLOBIN 13.6 G/DL (13.3-17.7); LYMPHOCYTES # (AUTO) 1.5 X 10^3 (1.0-4.0); LYMPHOCYTES % (AUTO) 31 % (12-44); MEAN CORPUSCULAR HEMOGLOBIN 28 PG (25-34); MEAN CORPUSCULAR HGB CONC 33 G/DL (32-36); MEAN CORPUSCULAR VOLUME 84 FL (80-99); MEAN PLATELET VOLUME 10.4 FL (7.4-10.4); MONOCYTES # (AUTO) 0.5 X 10^3 (0.0-1.0); MONOCYTES % (AUTO) 11 % (0-12); NEUTROPHILS # (AUTO) 2.7 X 10^3 (1.8-7.8); NEUTROPHILS % (AUTO) 57 % (42-75); PLATELET COUNT 175 10^3/uL (130-400); RED CELL DISTRIBUTION WIDTH 13.9 % (10.0-14.5); WHITE BLOOD COUNT 4.7 10^3/uL (4.3-11.0)
[2019-05-24 12:39] LABS: ALANINE AMINOTRANSFERASE 17 U/L (0-55); ALBUMIN 4.5 GM/DL (3.2-4.5); ALKALINE PHOSPHATASE 75 U/L (40-136); BILIRUBIN,TOTAL 0.3 MG/DL (0.1-1.0); BUN/CREATININE RATIO 11; CALCIUM 9.4 MG/DL (8.5-10.1); CARBON DIOXIDE 26 MMOL/L (21-32); CHLORIDE 106 MMOL/L (98-107); CREATININE SERUM 0.99 MG/DL (0.60-1.30); GFR ESTIMATED > 60; GLUCOSE 95 MG/DL (70-105); POTASSIUM 4.3 MMOL/L (3.6-5.0); SODIUM 141 MMOL/L (135-145); TOTAL PROTEIN 7.8 GM/DL (6.4-8.2)
[2019-05-24 14:40] VITALS: BP 109/78
== END ==
LOC: SDC 12:00
PROVIDERS: ATTEND Internal Medicine Gastroenterology
DX: K50.90 Crohn's disease, unspecified, without complications (principal)
CPT/HCPCS: 36415; 80053; 85025; 96365; 96366

== ENCOUNTER → 2019-07-19 | Outpatient (CLI) | payer OTHER ==
[~2019-07-19] VITALS: Ht 170.2 cm; Wt 69.5 kg
[~2019-07-19] MED LIST changes: -ACETAMINOPHEN 500 MG TAB (TYLENOL) ONE; +CATHETER FLUSH 10 ML SYR IV PRN; -INFLIXIMAB FOR IV ONE; +INFLIXIMAB IV SCH; -NORMAL SALINE IV ONE; +NS IV SCH; -diphenhydrAMINE 50 MG/ML INJ (BENADRYL) ONE
[2019-07-19 09:27] LABS: BASOPHILS % (AUTO) 0 % (0-10); EOSINOPHILS % (AUTO) 1 % (0-10); HEMATOCRIT 40 % (40-54); HEMOGLOBIN 13.4 G/DL (13.3-17.7); LYMPHOCYTES # (AUTO) 1.6 X 10^3 (1.0-4.0); LYMPHOCYTES % (AUTO) 38 % (12-44); MEAN CORPUSCULAR HEMOGLOBIN 28 PG (25-34); MEAN CORPUSCULAR HGB CONC 34 G/DL (32-36); MEAN CORPUSCULAR VOLUME 84 FL (80-99); MEAN PLATELET VOLUME 10.2 FL (7.4-10.4); MONOCYTES # (AUTO) 0.5 X 10^3 (0.0-1.0); MONOCYTES % (AUTO) 11 % (0-12); NEUTROPHILS # (AUTO) 2.1 X 10^3 (1.8-7.8); NEUTROPHILS % (AUTO) 49 % (42-75); PLATELET COUNT 184 10^3/uL (130-400); RED CELL DISTRIBUTION WIDTH 14.4 % (10.0-14.5); WHITE BLOOD COUNT 4.2 10^3/uL (4.3-11.0)
[2019-07-19 09:37] VITALS: BP 119/75
[2019-07-19 09:52] LABS: ALANINE AMINOTRANSFERASE 27 U/L (0-55); ALBUMIN 4.4 GM/DL (3.2-4.5); ALKALINE PHOSPHATASE 71 U/L (40-136); BILIRUBIN,TOTAL 0.5 MG/DL (0.1-1.0); BUN/CREATININE RATIO 12; CALCIUM 9.5 MG/DL (8.5-10.1); CARBON DIOXIDE 28 MMOL/L (21-32); CHLORIDE 105 MMOL/L (98-107); CREATININE SERUM 1.08 MG/DL (0.60-1.30); GFR ESTIMATED > 60; GLUCOSE 99 MG/DL (70-105); SODIUM 138 MMOL/L (135-145)
== END ==
LOC: SDC 08:59
PROVIDERS: ATTEND Internal Medicine Gastroenterology
DX: K50.90 Crohn's disease, unspecified, without complications (principal)
CPT/HCPCS: 36415; 80053; 85025; 96365; 96366

== ENCOUNTER 2019-09-25 06:53 | Outpatient (CLI) | payer OTHER ==
[~2019-09-25] VITALS: Ht 175.3 cm
[~2019-09-25 06:53] MED LIST changes: -ACETAMINOPHEN 500 MG TAB (TYLENOL) PO ONE; -CATHETER FLUSH 10 ML SYR IV PRN; -INFLIXIMAB IV SCH; -NS IV SCH; -diphenhydrAMINE 50 MG/ML INJ (BENADRYL) IV ONE
[2019-09-25] MEDS ORDERED: INFLIXIMAB IV SCH ×2 (07:11)
[2019-09-25] MEDS ORDERED: NS IV SCH ×2 (07:11)
[2019-09-25] MEDS ORDERED: ACETAMINOPHEN 500 MG TAB (TYLENOL) PO ONE (07:15)
[2019-09-25] MEDS ORDERED: diphenhydrAMINE 50 MG/ML INJ (BENADRYL) IV ONE (07:15)
[2019-09-25 07:25] LABS: BASOPHILS % (AUTO) 0 % (0-10); EOSINOPHILS # (AUTO) 0.1 10^3/uL (0.0-0.3); EOSINOPHILS % (AUTO) 1 % (0-10); HEMATOCRIT 40 % (40-54); HEMOGLOBIN 13.4 G/DL (13.3-17.7); LYMPHOCYTES # (AUTO) 1.6 X 10^3 (1.0-4.0); LYMPHOCYTES % (AUTO) 34 % (12-44); MEAN CORPUSCULAR HEMOGLOBIN 28 PG (25-34); MEAN CORPUSCULAR HGB CONC 33 G/DL (32-36); MEAN CORPUSCULAR VOLUME 84 FL (80-99); MEAN PLATELET VOLUME 10.8 FL (7.4-10.4); MONOCYTES # (AUTO) 0.6 X 10^3 (0.0-1.0); MONOCYTES % (AUTO) 12 % (0-12); NEUTROPHILS # (AUTO) 2.5 X 10^3 (1.8-7.8); NEUTROPHILS % (AUTO) 53 % (42-75); PLATELET COUNT 160 10^3/uL (130-400); RED CELL DISTRIBUTION WIDTH 13.5 % (10.0-14.5); WHITE BLOOD COUNT 4.8 10^3/uL (4.3-11.0)
[2019-09-25 07:43] LABS: ALANINE AMINOTRANSFERASE 22 U/L (0-55); ALBUMIN 4.2 GM/DL (3.2-4.5); ALKALINE PHOSPHATASE 59 U/L (40-136); BILIRUBIN,TOTAL 0.4 MG/DL (0.1-1.0); BUN/CREATININE RATIO 8; CALCIUM 9.5 MG/DL (8.5-10.1); CARBON DIOXIDE 24 MMOL/L (21-32); CHLORIDE 109 MMOL/L (98-107); CREATININE SERUM 1.08 MG/DL (0.60-1.30); GFR ESTIMATED > 60; GLUCOSE 115 MG/DL (70-105); POTASSIUM 4.1 MMOL/L (3.6-5.0); SODIUM 141 MMOL/L (135-145); TOTAL PROTEIN 7.2 GM/DL (6.4-8.2)
[2019-09-25 09:45] VITALS: BP 121/69
== END 2019-09-25 09:55 | disposition home or self-care (01) ==
LOC: SDC 06:53
PROVIDERS: ATTEND Internal Medicine Gastroenterology
DX: K50.90 Crohn's disease, unspecified, without complications (principal)
CPT/HCPCS: 36415; 80053; 85025; 86141; 96365; 96366; 96374